=== PATIENT | female | born 1975 | race Caucasian/White ===

== ENCOUNTER 2021-03-24 18:45 | Emergency (ER) | payer OTHER ==
[2021-03-24 19:26] VITALS: BP 132/79
--- NOTE | 2021-03-24 20:54 | Event Note ---
ED Screening Note Date of service: 03/24/21 Time: 20:53 ED Screening Note: 45-year-old female presents to the ER today with complaints of right low back/right flank pain that radiates into her right lower quadrant. She states that it started today. She states that has been constant in nature. She reports associated dysuria, urinary urgency and hesitancy. She denies any hematuria. She denies any nausea, vomiting, diarrhea or any constipation. She denies any fever or chills. She states that she went to a urgent care today and they told her it could be related to a UTI and started on Bactrim but she states that she had no testing done including not having a urinalysis done. She denies similar symptoms in the past. Only abdominal surgery is prior . This initial assessment/diagnostic orders/clinical plan/treatment(s) is/are subject to change based on patients health status, clinical progression and re- assessment by fellow clinical providers in the ED. Further treatment and workup at subsequent clinical providers discretion. Patient/guardian urged not to elope from the ED as their condition may be serious if not clinically assessed and managed. Initial orders include: Abdominal pain order set including CT abdomen pelvis with IV contrast
[2021-03-24 21:25] LABS: Basophils # (Auto) 0.1 K/mm3 (0.0-0.1); Basophils % (Auto) 0.6 % (0.0-1.8); Eosinophils % (Auto) 0.1 % (0.0-4.3); Hematocrit 40.3 % (30.3-42.9); Hemoglobin 13.8 gm/dl (10.1-14.3); Lymphocytes # (Auto) 1.9 K/mm3 (1.2-5.4); Lymphocytes % (Auto) 11.9 % (13.4-35.0); Mean Corpuscular HGB Conc 34 % (30-34); Mean Corpuscular Volume 91 fl (79-97); Monocytes # (Auto) 1.3 K/mm3 (0.0-0.8); Monocytes % (Auto) 8.5 % (0.0-7.3); Platelet Count 348 K/mm3 (140-440); Red Blood Count 4.42 M/mm3 (3.65-5.03); Red Cell Distribution Width 13.4 % (13.2-15.2)
[2021-03-24 21:29] LABS: Bilirubin,Urine NEG (Negative); Blood,Urine LG (Negative); Color,Urine Yellow (Yellow); Mucus,Urine FEW /HPF; Urobilinogen,Urine < 2.0 mg/dL (<2.0)
[2021-03-24 21:30] LABS: HCG Qualitative,Urine Negative (Negative); RBC,Urine > 182.0 /HPF (0.0-6.0); WBC,Urine > 182.0 /HPF (0.0-6.0)
[2021-03-24 21:44] LABS: Alanine Aminotransferase 22 units/L (7-56); Albumin 4.4 g/dL (3.9-5); Blood Urea Nitrogen 8 mg/dL (7-17); Calcium 9.8 mg/dL (8.4-10.2); Hemolysis Index 23
[2021-03-24 22:08] LABS: BUN/Creatinine Ratio 13
[2021-03-24] MEDS ORDERED: SODIUM CHLORIDE 0.9% 1000 ML 1,000 ML IV ONE (22:39)
--- NOTE | 2021-03-24 22:54 | Emergency Department Report ---
<ROSI VASQUEZELDA Benitez - Last Filed: 03/25/21 02:09> ED Abdominal Pain HPI - General Chief Complaint: Abdominal Pain Stated Complaint: PAIN BACK\STOMACH PUI?: No - Related Data Previous Rx's Medication Instructions Recorded Last Taken Type Rivaroxaban [Xarelto Starter Pack] 1 each PO BID 43 Days #1 tab.ds.pk 03/25/21 Unknown Rx levoFLOXacin [Levaquin TAB] 500 mg PO QDAY 5 Days #5 tablet 03/25/21 Unknown Rx traMADoL [Ultram 50 MG tab] 50 mg PO Q6HR PRN #12 tablet 03/25/21 Unknown Rx Allergies Allergy/AdvReac Type Severity Reaction Status Date / Time No Known Allergies Allergy Unverified 03/24/21 19:30 ED Past Medical Hx - Medications Home Medications: Home Medications Medication Instructions Recorded Confirmed Last Taken Type Rivaroxaban [Xarelto Starter Pack] 1 each PO BID 43 Days #1 tab.ds.pk 03/25/21 Unknown Rx levoFLOXacin [Levaquin TAB] 500 mg PO QDAY 5 Days #5 tablet 03/25/21 Unknown Rx traMADoL [Ultram 50 MG tab] 50 mg PO Q6HR PRN #12 tablet 03/25/21 Unknown Rx ED Course - Reevaluation(s) Reevaluation #2: I reviewed the findings and management of this patient in real-time and I have personally seen and examined this patient and participated in the decision making for this patient with the midlevel. Patient is a 45-year-old female presents emergency room for right flank pain. Patient had labs done which were essentially remarkable for elevated WBC. Patient also found to have a UTI. Patient had a CT scan of the abdomen which showed no acute findings except for a thrombophlebitis. We then discussed the case with vascular surgery and the recommendations were received. Patient to be treated with antibiotics, pain meds and Xarelto following the vascular surgery recommendations. Patient is stable for discharge. Patient not require inpatient services. Patient not require further emergency medical service. I discussed all results and clinical findings with patient. I discussed plan of care with patient. Patient agrees with plan of care. Patient is stable for discharge. Patient will be discharged home. Patient given discharge instructions. Patient voiced understanding of discharge instructions. I examined the patient. Patient's lung sounds are clear to auscultation. Patient abdomen is negative. Patient's CV exam shows normal S1-S2. 03/25/21 01:49 ED Medical Decision Making - Lab Data Result diagrams: 03/24/21 21:09 03/24/21 21:09 ED Disposition Clinical Impression: Thromboangiitis UTI (urinary tract infection) Qualifiers: Urinary tract infection type: acute cystitis Hematuria presence: with hematuria Qualified Code(s): N30.01 - Acute cystitis with hematuria Disposition: TO HOME OR SELFCARE Condition: Stable Instructions: Urinary Tract Infection, Adult, [id number], Abdominal Pain (ED) Additional Instructions: Urinalysis shows that she have a urinary tract infection. CT scans concerning for a possible clot near your kidney. Please complete antibiotics as prescribed. Please take Xarelto as prescribed. At 15 mg twice a day for 21 days and then 20 mg once a day at the same time every day. Is important that you follow-up with vascular services. That is [facility] phone #[phone]. El anlisis de orina muestra que tiene kaushal infeccin del tracto urinario. Tomografas computarizadas relacionadas con un posible cogulo cerca del rin. Por favor, complete los antibiticos segn lo prescrito. Por favor, tome Xarelto segn lo prescrito. A 15 mg dos veces al da jose 21 benavidez y luego 20 mg kaushal vez al da a la misma hora todos los benavidez. Es importante que dorothy un seguimiento con los servicios vasculares. Eso es jamaal mismo [facility] #[phone]. Prescriptions: levoFLOXacin [Levaquin TAB] 500 mg PO QDAY 5 Days #5 tablet traMADoL [Ultram 50 MG tab] 50 mg PO Q6HR PRN #12 tablet PRN Reason: Pain Rivaroxaban [Xarelto Starter Pack] 1 each PO BID 43 Days #1 tab.ds.pk Referrals: PRIMARY CARE, [Primary Care Provider] - 3-5 Days [facility] [Other] - 3-5 Days <KENNY BAXTER - Last Filed: 03/28/21 08:20> ED Abdominal Pain HPI - General PUI?: No Source: patient Mode of arrival: Ambulatory Limitations: No Limitations - History of Present Illness Initial Comments: 45-year-old female presents to the ER today with complaints of right low back/right flank pain that radiates into her right lower quadrant. She states that it started today. She states that has been constant in nature. She reports associated dysuria, urinary urgency and hesitancy. She denies any hematuria. She denies any nausea, vomiting, diarrhea or any constipation. She denies any fever or chills. She states that she went to a urgent care today and they told her it could be related to a UTI and started on Bactrim but she states that she had no testing done including not having a urinalysis done. She denies similar symptoms in the past. Only abdominal surgery is prior C- section. MD Complaint: abdominal pain, flank pain -: This morning Location: R flank Radiation: suprapubic Severity scale (0 -10): 8 Quality: stabbing, sharp Consistency: constant Improves With: nothing Worsens With: nothing Associated Symptoms: denies: nausea, vomiting, diarrhea, fever ED Review of Systems ROS: Stated complaint: PAIN BACK\STOMACH Other details as noted in HPI Comment: All other systems reviewed and negative ED Past Medical Hx - Past Medical History Previous Medical History?: No - Surgical History Past Surgical History?: Yes Additional Surgical History: - Social History Smoking Status: Never Smoker Substance Use Type: None ED Physical Exam - General Limitations: No Limitations General appearance: alert, in no apparent distress - Head Head exam: Present: atraumatic, normocephalic - Eye Eye exam: Present: normal appearance - ENT ENT exam: Present: mucous membranes moist, normal external ear exam - Neck Neck exam: Present: normal inspection, full ROM - Respiratory Respiratory exam: Present: normal lung sounds bilaterally - Cardiovascular Cardiovascular Exam: Present: regular rate - GI/Abdominal GI/Abdominal exam: Present: soft, normal bowel sounds. Absent: distended, tenderness, guarding - Extremities Exam Extremities exam: Present: normal inspection, full ROM - Back Exam Back exam: Present: normal inspection - Neurological Exam Neurological exam: Present: alert, oriented X3, normal gait - Psychiatric Psychiatric exam: Present: normal affect, normal mood - Skin Skin exam: Present: warm, dry, intact, normal color. Absent: rash ED Course Vital Signs 03/24/21 03/25/21 19:20 01:45 Temperature 99.0 F Pulse Rate 96 H 79 Respiratory 16 16 Rate Blood Pressure 132/79 O2 Sat by Pulse 99 99 Oximetry - Reevaluation(s) Reevaluation #1: 03/25/21 01:30 Patient reports she feels much better after having Toradol IV and fluids. - Consultations Consultation #1: 03/25/21 01:[address] Cirilo Mosqueda vascular. He recommends to start patient on Xarelto starter kit 15 mg p.o. twice daily at the same time and then 20 mg daily at the same time. He would like to see her in clinic in 2 weeks. Informed patient she may have increasing bleeding while being on a blood thinner. ED Medical Decision Making - Lab Data Result diagrams: 03/24/21 21:09 03/24/21 21:09 - Radiology Data Radiology results: report reviewed [facility] [address] [place] [address] Cat Scan Report Signed Patient: SHARDA DIETRICH MR#: [id number] : 1975 Acct:[id number] Age/Sex: 45 / F ADM Date: 03/24/21 Loc: ED Attending Dr: Ordering Physician: KIM LEMON Date of Service: 03/24/21 Procedure(s): CT abdomen pelvis w con Accession Number(s): [id number] cc: KIM LEMON CT ABDOMEN AND PELVIS WITH CONTRAST INDICATION / CLINICAL INFORMATION: RIGHT flank pain that radiates to RIGHT ab domen x 2 days. TECHNIQUE: Axial CT images were obtained through the abdomen and pelvis after 1 00 mL Omnipaque [address] scans at this location are performed using CT dose reducti on for [employer] by means of automated exposure control. COMPARISON: None available. FINDINGS: LOWER CHEST: No significant abnormality. LIVER: No significant abnormality. GALLBLADDER: No significant abnormality. BILE DUCTS: No significant abnormality. PANCREAS: No significant abnormality. SPLEEN: No significant abnormality. ADRENALS: No significant abnormality. RIGHT KIDNEY / URETER: No significant abnormality. LEFT KIDNEY / URETER: No significant abnormality. STOMACH / SMALL BOWEL: No significant abnormality. COLON: No significant abnormality. APPENDIX: No significant abnormality. PERITONEUM: No free fluid. No free air. No fluid collection. LYMPH NODES: No significant adenopathy. AORTA / ARTERIES: No significant abnormality. 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 URINARY BLADDER: No significant abnormality. REPRODUCTIVE ORGANS: Right ovarian physiologic cyst measuring 2.8 cm. No significant abnormality. ADDITIONAL FINDINGS: None. SKELETAL SYSTEM: No significant abnormality. IMPRESSION: 1. 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 2. No other inflammatory process or bowel obstruction in the abdomen or pelvis. 3. No urinary tract stones or hydronephrosis. Signer Name: Jagdish Erickson MD Signed: 03/24/2021 11:33 PM Workstation Name: [id number] - Medical Decision Making 45-year-old female presents to the ER today with complaints of right low back/right flank pain that radiates into her right lower quadrant. She states that it started today. She states that has been constant in nature. She reports associated dysuria, urinary urgency and hesitancy. She denies any hematuria. She denies any nausea, vomiting, diarrhea or any constipation. She denies any fever or chills. She states that she went to a urgent care today and they told her it could be related to a UTI and started on Bactrim but she states that she had no testing done including not having a urinalysis done. She denies similar symptoms in the past. Only abdominal surgery is prior C- section. CBC CMP hCG urinalysis INT CT with contrast normal saline Patient was given Toradol IV and normal saline. Patient reports she is feels much better. 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 Spoke to attending and then called and spoke to Dr. Mosqueda. We will send patient home on Levaquin Xarelto follow-up in [address] Welch went over discharge summary in Samoan with patient as well to be sure there was no confusion. Patient had no questions. Patient given a starter pack for Xarelto. Critical care attestation.: If time is entered above; I have spent that time in minutes in the direct care of this critically ill patient, excluding procedure time. ED Disposition Is pt being admited?: No Does the pt Need Aspirin: No
[2021-03-24] MEDS ORDERED: KETOROLAC 30 MG/1 ML INJ IV ONE (23:21)
--- NOTE | 2021-03-24 23:37 | Cat Scan Report ---
CT ABDOMEN AND PELVIS WITH CONTRAST INDICATION / CLINICAL INFORMATION: RIGHT flank pain that radiates to RIGHT abdomen x 2 days. TECHNIQUE: Axial CT images were obtained through the abdomen and pelvis after 100 mL Omnipaque [address] scans at this location are performed using CT dose reduction for ALARA by means of automated exposure control. COMPARISON: None available. FINDINGS: LOWER CHEST: No significant abnormality. LIVER: No significant abnormality. GALLBLADDER: No significant abnormality. BILE DUCTS: No significant abnormality. PANCREAS: No significant abnormality. SPLEEN: No significant abnormality. ADRENALS: No significant abnormality. RIGHT KIDNEY / URETER: No significant abnormality. LEFT KIDNEY / URETER: No significant abnormality. STOMACH / SMALL BOWEL: No significant abnormality. COLON: No significant abnormality. APPENDIX: No significant abnormality. PERITONEUM: No free fluid. No free air. No fluid collection. LYMPH NODES: No significant adenopathy. AORTA / ARTERIES: No significant abnormality. 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 URINARY BLADDER: No significant abnormality. REPRODUCTIVE ORGANS: Right ovarian physiologic cyst measuring 2.8 cm. No significant abnormality. ADDITIONAL FINDINGS: None. SKELETAL SYSTEM: No significant abnormality. IMPRESSION: 1. 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 2. No other inflammatory process or bowel obstruction in the abdomen or pelvis. 3. No urinary tract stones or hydronephrosis. Signer Name: Jagdish Erickson MD Signed: 03/24/2021 11:33 PM Workstation Name: [id number]
--- NOTE | 2021-03-25 01:16 | Event Note ---
Date: 03/25/21 45 year old female who presented for UTI with right flank pain. CT scan demonstrates right sided pyelitis which are early changes associated with pyelonephritis. 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 I reviewed the CT and this finding is unlikely. Discussed with provider. Recommend treatment of pyelonephritis and treatment of gonadal vein thrombus. Recommend anticoagulation for gonadal vein thrombus with DOAC (Eliquis or Xarelto). Have patient followup with [facility] @ [phone] and we can arrange outpatient followup imaging to re-evaluate for gonadal vein thrombus. Once excluded, can stop anticoagulation.
== END 2021-03-25 01:45 | disposition home or self-care (01) ==
LOC: ED 18:45
DX: N39.0 Urinary tract infection, site not specified (principal); R10.31 Right lower quadrant pain; Z98.890 Other specified postprocedural states
CPT/HCPCS: 36415; 74177; 80053; 81001; 81025; 83735; 85025; 96361; 96374; 99284; J1885; J7030; Q9967

== ENCOUNTER 2021-06-09 11:22 | Outpatient (CLI) | payer OTHER ==
[2021-06-09 12:25] LABS: Blood Urea Nitrogen 8 mg/dL (7-17)
--- NOTE | 2021-06-09 14:51 | Cat Scan Report ---
CT ABDOMEN AND PELVIS WITH AND WITHOUT CONTRAST INDICATION / CLINICAL INFORMATION: F/U AFTER CT SCAN 100 ml omni 300. TECHNIQUE: Axial CT images were obtained through the abdomen and pelvis before and after 100 cc Omnipaque 300 IV contrast. Sagittal and coronal reformatted images. All CT scans at this location are performed using CT dose reduction for ALARA by means of automated exposure control. COMPARISON: 03/24/2021 FINDINGS: LOWER CHEST: No significant abnormality. LIVER: No significant abnormality. GALLBLADDER: No significant abnormality. BILE DUCTS: No significant abnormality. PANCREAS: No significant abnormality. SPLEEN: No significant abnormality. ADRENALS: No significant abnormality. RIGHT KIDNEY and URETER: No significant abnormality. LEFT KIDNEY and URETER: No significant abnormality. STOMACH and SMALL BOWEL: No significant abnormality. COLON: No significant abnormality. APPENDIX: No significant abnormality. PERITONEUM: No free fluid. No free air. No fluid collection. LYMPH NODES: No significant adenopathy. AORTA and ARTERIES: No significant abnormality. IVC and VEINS: No suggestion of right gonadal vein thrombophlebitis on today's exam. URINARY BLADDER: No significant abnormality. REPRODUCTIVE ORGANS: No significant abnormality. Previously described right ovarian cyst has resolved . ADDITIONAL FINDINGS: None. SKELETAL SYSTEM: No significant abnormality. IMPRESSION: No significant abnormality. Signer Name: Sean Paul Jr, MD Signed: 06/09/2021 2:43 PM Workstation Name: [id number]
== END 2021-06-09 11:23 | disposition home or self-care (01) ==
LOC: CT 11:22
PROVIDERS: ATTEND Radiology Diagnostic Radiology
DX: I82.890 Acute embolism and thrombosis of other specified veins (principal)
CPT/HCPCS: 36415; 74178; 82565; 84520; Q9967